=== PATIENT | female | born 1970 | race American Indian/Alaskan Native ===

== ENCOUNTER 2017-04-05 18:25 | Inpatient (IN) | payer BC, OTHER ==
[2017-04-05 18:25] VITALS: BMI 33.4
--- NOTE | 2017-04-05 19:01 | ED PDOC ---
Arrival/HPI - General Historian: Patient - General Chief Complaint: High Blood Pressure Time Seen by Provider: 04/05/17 18:50 - History of Present Illness Narrative History of Present Illness (Text): 04/05/17 18:50 46 y/o female, pmh including htn (been on the diovan)/TIA, penicillin allergy, c /o elevated blood pressure today. Pt. stated that she woke up with the lt. eye blurry vision on and off 10am this morning, stated that this feels like her previous TIA, has not been feeling well and been checking the blood pressure all day long with the highest BP checked is 170/110. Pt. stated that she has no eye pain, no chest pain or shortness of breath, no palpitation, no numbness or tingling, no dizziness, no neck pain, no falling curtains, no other medical or psychological complaints. (El Manning) Past Medical History - Provider Review Nursing Documentation Reviewed: Yes - Infectious Disease Hx of Infectious Diseases: None - Tetanus Immunization Tetanus Immunization: Up to Date, Unknown - Cardiac Hx Cardiac Arrhythmia: No Hx Congestive Heart Failure: No Hx Hypertension: Yes Hx Internal Defibrillator: No Hx Mitral Valve Prolapse: No Hx Pacemaker: No Hx Peripheral Edema: No - Pulmonary Hx Asthma: No Hx Bronchitis: No Hx Chronic Obstructive Pulmonary Disease (COPD): No Hx Emphysema: No - Neurological Hx Transient Ischemic Attacks (TIA): Yes - HEENT Hx HEENT Disorder: No Hx Blind: No Hx Cataracts: No Hx Deafness: No Hx Difficulty Chewing: No Hx Epistaxis: No Hx Glaucoma: No Hx Macular Degeneration: No - Renal Hx Renal Failure: No - Endocrine/Metabolic Hx Hyperthyroidism: No Hx Hypothyroidism: No - Hematological/Oncological Hx Anemia: No Hx Cancer: No Hx Hepatitis A: No Hx Hepatitis B: No Hx Hepatitis C: No - Integumentary Hx Dermatological Disorder: No Hx Basal Cell Carcinoma: No Hx Eczema: No Hx Melanoma: No Hx Psoriasis: No Hx Squamous Cell Carcinoma: No - Musculoskeletal/Rheumatological Hx Arthritis: No - Gastrointestinal Hx Crohn's Disease: No Hx Diverticulitis: No Hx Gastroesophageal Reflux: No Hx Gastrointestinal Ulcer: No Hx Liver Failure: No - Genitourinary/Gynecological Hx Genitourinary Disorders: Yes Hx Hematuria: No Hx Incontinence: Yes (Stress incontinence) Hx Prostate Problems: No Hx Sexually Transmitted Diseases: No Hx Urinary Tract Infection: Yes (Frequent UTI) - Psychiatric Hx Psychophysiologic Disorder: Yes Hx Anxiety: Yes Hx Substance Use: No - Past Surgical History Past Surgical History: No Previous - Surgical History Hx Section: Yes - Anesthesia Hx Anesthesia: Yes Hx Anesthesia Reactions: No Hx Malignant Hyperthermia: No - Suicidal Assessment Feels Threatened In Home Enviroment: No Family/Social History - Physician Review Nursing Documentation Reviewed: Yes Family/Social History: Unknown Family HX Smoking Status: Never Smoked Hx Alcohol Use: No Hx Substance Use: No Hx Substance Use Treatment: No Allergies/Home Meds Allergies/Adverse Reactions: Allergies Penicillins Allergy (Verified 04/05/17 18:38) RASH Review of Systems - Review of Systems Constitutional: absent: Fatigue, Weight Change Eyes: Other (lt. eye pressure. ). absent: Vision Changes, Photophobia ENT: absent: Hearing Changes, Sore Throat, Rhinorrhea Respiratory: absent: SOB, Cough Cardiovascular: absent: Chest Pain Gastrointestinal: absent: Abdominal Pain, Diarrhea, Nausea, Vomiting Musculoskeletal: absent: Arthralgias, Myalgias Neurological: absent: Headache, Dizziness, Focal Weakness, Speech Changes, Facial Droop Physical Exam Vital Signs Reviewed: Yes Temperature: Afebrile Blood Pressure: Normal Pulse: Tachycardic Respiratory Rate: Normal Appearance: Positive for: Well-Appearing, Non-Toxic, Comfortable Pain Distress: None Mental Status: Positive for: Alert and Oriented X 3 - Systems Exam Head: Present: Atraumatic, Normocephalic Pupils: Present: PERRL Extroacular Muscles: Present: EOMI Conjunctiva: Present: Normal, Other (Eyes: lt. eye vision with correction 20/20 vs. rt. eye vision with correction 20/20, bilateral vision 20/20, FREOM without limitation, +lt. eye conjunctivitis with no hyphema or subconjunctival hemorrages, left eye intraocular pressure is 18.) Ears: Present: NORMAL TM, Normal Canal. No: Erythema Mouth: Present: Moist Mucous Membranes Pharnyx: No: ERYTHEMA, EXUDATE, TONSILS ENLARGED, Uvular Deviation Nose (External): Present: Atraumatic. No: Abrasion, Contusion Nose (Internal): Present: Normal Inspection, No Active Bleeding. No: Rhinorrhea , Septal Hematoma, Epistaxis Neck: Present: Normal Range of Motion, Trachea Midline. No: Lymphadenopathy Respiratory/Chest: Present: Clear to Auscultation, Good Air Exchange. No: Respiratory Distress, Accessory Muscle Use Cardiovascular: Present: Regular Rate and Rhythm, Normal S1, S2. No: Murmurs Abdomen: Present: Normal Bowel Sounds. No: Tenderness, Distention, Peritoneal Signs Back: Present: Normal Inspection Upper Extremity: Present: Normal Inspection. No: Cyanosis, Edema Lower Extremity: Present: Normal Inspection. No: Edema Neurological: Present: GCS=15, CN II-XII Intact, Speech Normal Skin: Present: Warm, Dry, Normal Color. No: Rashes Psychiatric: Present: Alert, Oriented x 3, Normal Insight, Normal Concentration Vital Signs Temp Pulse Resp BP Pulse Ox 04/05/17 23:40 98.3 F 94 H 18 145/66 99 04/05/17 22:25 86 18 146/97 H 94 L 04/05/17 20:25 79 18 163/98 H 93 L 04/05/17 18:40 98.2 F 104 H 17 131/86 98 Medical Decision Making - Lab Interpretations I have reviewed the lab results: Yes Interpretation: No clinic. lab abnormalty - RAD Interpretation Telecommunications Repairer: Radiologist - EKG Interpretation Interpreted by ED Physician: Yes Type: 12 lead EKG ED Course and Treatment: 04/05/17 19:43 I was available for consultation during PA evaluation. The chart was reviewed by me, and I agree with disposition. The documented history was done by the physician resolution agent. The documented physical exam was done by the physician resolution agent. The documented procedures were done by the physician resolution agent. (Junior Urbina) 04/05/17 19:10 -labs -CT head/orbit -Lt. eye introcular pressure is 18 which is within normal limit. -observe and reassess 04/05/17 22:24 -CT head show no acute hemorrage but there is asymmetric changes on the rt. internal capsule which can not rule out acute stroke, no focal deficits. -CT orbital show no acute findings -Chest xray show no active disease -EKG show: NSR @ 79 BPM, no ST elevation or depression, no T wave inversion. -Erythromycin opthalmic ordered for the lt. conjunctivitis. -Pt. passed the swallow screen, vision return, aspirin 325mg po ordered, aspiration and fall risk ordered. -Pt. will be admit to observe to night for the MRI of the head tomorrow to rule out acute stroke, pt. is not a TPA candidate. 04/05/17 22:47 -I spoke to the oncall medicine DR. Feliciano request to give the case to hospitalist. -I discussed the case with DR. José and the medical billing service, both agreed to admit the patient for MRI tomorrow morning. 04/05/17 22:55 -Dr. Urbina is off the shift, will put in the order for him. (El Manning) - Lab Interpretations Lab Results: 04/06/17 07:12 04/06/17 07:12 Lab Results 04/06/17 07:12: TSH 3rd Generation 3.68 04/06/17 07:12: Vitamin B12 485 04/06/17 07:12: Sodium 141, Potassium 4.0, Chloride 108 H, Carbon Dioxide 23, Anion Gap 14, BUN 13, Creatinine 0.8, Est GFR ( Amer) > 60, Est GFR (Non- Af Amer) > 60, Random Glucose 87, Calcium 8.9, Total Bilirubin 0.6, AST 19, ALT 20, Alkaline Phosphatase 64, Total Protein 6.5, Albumin 3.5, Globulin 3.0, Albumin/Globulin Ratio 1.2, Triglycerides 71, Cholesterol 168, LDL Cholesterol Direct 107, HDL Cholesterol 46 04/06/17 07:12: Lupus Anticoagulant see note, LA PTT Screen 37, dRVVT Mixing Study 33, dRVVT Mix Interpret Not indicated 04/06/17 07:12: PT 10.7, INR 0.99, APTT 28.6 04/06/17 07:12: WBC 7.1 D, RBC 3.95, Hgb 12.4, Hct 36.8, MCV 93.2, MCH 31.4, MCHC 33.7, RDW 13.2, Plt Count 271, MPV 9.0, Gran % 57.2, Lymph % (Auto) 32.7, [place] % (Auto) 9.1 H, Eos % (Auto) 0.7 L, Baso % (Auto) 0.3, Gran # 4.05, Lymph # 2.3, [place] # 0.6, Eos # 0.1, Baso # 0.02, ESR 25 H 04/05/17 20:15: Sodium 140, Potassium 3.6, Chloride 108 H, Carbon Dioxide 20 L, Anion Gap 16, BUN 14, Creatinine 0.8, Est GFR ( Amer) > 60, Est GFR (Non- Af Amer) > 60, Random Glucose 73, Calcium 9.1, Total Bilirubin 0.7, AST 22, ALT 17, Alkaline Phosphatase 69, Total Protein 7.3, Albumin 3.8, Globulin 3.4, Albumin/Globulin Ratio 1.1 04/05/17 20:15: WBC 9.0, RBC 3.95, Hgb 12.7, Hct 36.9, MCV 93.4, MCH 32.2, MCHC 34.4, RDW 13.2, Plt Count 239, MPV 8.7, Gran % 62.4, Lymph % (Auto) 29.5, [place] % (Auto) 7.0 H, Eos % (Auto) 1.0 L, Baso % (Auto) 0.1, Gran # 5.61, Lymph # 2.7 , [place] # 0.6, Eos # 0.1, Baso # 0.01 - RAD Interpretation Radiology Orders: 04/05/17 19:01 HEAD W/O CONTRAST [CT] Stat 04/05/17 19:05 ORBITS/ FACIALS W/O CONTRAST [CT] Stat 04/05/17 22:07 CHEST PORTABLE [RAD] Stat 04/06/17 01:18 CAROTID & VERTEBRAL DUPLEX [US] Routine 04/06/17 12:23 MRA HEAD WITHOUT CONTRAST [MRI] Urgent 04/06/17 12:32 MRA NECK WITHOUT CONTRAST [MRI] Urgent 04/05/17 19:01 HEAD W/O CONTRAST [CT] Stat 04/05/17 19:05 ORBITS/ FACIALS W/O CONTRAST [CT] Stat 04/05/17 22:07 CHEST PORTABLE [RAD] Stat CT Head: IMPRESSION: Subtle asymmetric right internal capsule low-density could represent artifact although the possibility of an age-indeterminate infarct or nonspecific white matter abnormality is raised. Thank you for allowing us to participate in the care of your patient. Dictated and Authenticated by: Desmond Coleman MD 04/05/2017 9:49 PM Eastern Time ([place] & [place]) CT Orbital/facial: IMPRESSION: No acute findings. Thank you for allowing us to participate in the care of your patient. Dictated and Authenticated by: Desmond Coleman MD 04/05/2017 9:53 PM Eastern Time ( & [place]) Chest x-ray: no active disease (El Manning) - EKG Interpretation EKG Interpretation (Text): 04/05/17 22:30 : NSR @ 79 BPM, no ST elevation or depression, no T wave inversion. (El Manning ) - Medication Orders Current Medication Orders: Discontinued Medications Amlodipine Besylate (Norvasc) 5 mg PO STAT STA Stop: 04/06/17 05:31 Last Admin: 04/06/17 06:12 Dose: 5 mg Amlodipine Besylate (Norvasc) 10 mg PO DAILY [facility] Last Admin: 04/07/17 09:38 Dose: 10 mg Aspirin (Aspirin) 325 mg PO STAT STA Stop: 04/05/17 22:09 Last Admin: 04/05/17 22:46 Dose: 325 mg Erythromycin (Erythromycin) 1 applic OU ONCE ONE Stop: 04/05/17 22:27 Last Admin: 04/05/17 23:53 Dose: 1 oin Famotidine (Pepcid) 20 mg IVP DAILY [facility] Last Admin: 04/07/17 09:38 Dose: 20 mg Hydrochlorothiazide (Hydrodiuril) 25 mg PO DAILY [facility] Last Admin: 04/07/17 09:38 Dose: 25 mg Labetalol HCl (Trandate) 20 mg IV ONCE ONE Stop: 04/06/17 01:55 Last Admin: 04/06/17 02:21 Dose: 20 mg Pneumococcal Polyvalent Vaccine (Pneumovax 23 Vaccine) 0.5 ml IM .ONCE ONE Stop: 04/08/17 10:01 NIHSS Scale (Ideal) Time Performed: 19:00 - How Severe is the [place]oke Baseline Level of Consciousness: 0=Alert LOC to Questions: 0=Both comments correct LOC to commands: 0=Obeys both correctly Best Gaze: 0=Normal Visual: 1=Partial hemianopia Facial: 0=Normal Motor Arm - Left: 0=No drift Motor Arm - Right: 0=No drift Motor Leg - Left: 0=No drift Motor Leg - Right: 0=No drift Limb Ataxia: 0=Absent Sensory: 0=Normal Best Language: 0=No aphasia Dysarthia: 0=Normal articulation Extinction & Inattention (Neglect): 0=Normal, no object Score: 1 Risk Level: Minor Stroke Risk - PA / SASH FINISHER / Resident Statement MD/DO has reviewed & agrees with the documentation as recorded. Disposition/Present on Arrival - Present on Arrival Any Indicators Present on Arrival: No History of DVT/PE: No History of Uncontrolled Diabetes: No Urinary Catheter: No History of Decub. Ulcer: No History Surgical Site Infection Following: None - Disposition Have Diagnosis and Disposition been Completed?: Yes Disposition Time: 22:31 Patient Plan: Observation - Disposition Diagnosis: Transient vision disturbance of left eye Disposition: HOSPITALIZED Condition: STABLE
[2017-04-05 20:35] LABS: BASO # 0.01 K/mm3 (0.0-2.0); BASO % 0.1 % (0.0-3.0); EOS # 0.1 (0.0-0.7); GRAN # 5.61 (1.4-6.5); GRAN % 62.4 % (50.0-68.0); HEMOGLOBIN 12.7 gm/dL (12.0-16.0); LYMPH # 2.7 (1.2-3.4); LYMPH % 29.5 % (22.0-35.0); MEAN CELL VOLUME 93.4 fL (80.0-105.0); MEAN CORPUSCULAR HEMOGLOBIN 32.2 pg (25.0-35.0); MEAN CORPUSCULAR HGB CONC 34.4 g/dl (31.0-37.0); MEAN PLATELET VOLUME 8.7 fl (7.0-11.0); MONO # 0.6 (0.1-0.6); PLATELET COUNT 239 10^3/uL (120.0-450.0); RBC 3.95 10^6/uL (3.5-6.1); RED CELL DISTRIBUTION WIDTH 13.2 % (11.5-14.5)
[2017-04-05 20:44] LABS: ALB/GLOB RATIO 1.1 (1.1-1.8); ALBUMIN 3.8 g/dL (3.0-4.8); ALT/SGPT 17 U/L (7-56); AST/SGOT 22 U/L (15-39); BLOOD UREA NITROGEN 14 mg/dL (7-21); CALCIUM 9.1 mg/dL (8.4-10.5); GFR AFRICAN-AMERICAN > 60; GFR NON-AFRICAN AMERICAN > 60
[2017-04-05] MEDS ORDERED: Erythromycin 0.5% Ophth Oint 1 APPLIC/3.5 G OU ONE (22:26)
--- NOTE | 2017-04-06 01:28 | CP.PCM.HP ---
Addendum entered and electronically signed by Jack York DO 04/06/17 05:29: Case was discussed at length with Dr. Gallagher. Correction: patient given labetalol 20 once in the ER for BP control, will start on amlodipine 10mg po QD. CT head and orbit pending. Neuro consulted. Medication compliance was discussed at length with patient. Jack York D.O. PGY-2 Original Note: <RANDI GALLAGHER - Last Filed: 04/06/17 05:20> History of Present Illness - History of Present Illness History of Present Illness: 46 year old female pmh TIA 2010 and HTN presented to [facility] ED on 04/05/17 with complaints of a left red eye. Patient states that 6 years ago she suffered a TIA. At that time her symptoms involved a red spot on her eye and a few minutes of dizziness. At the time her blood pressure was elevated. Her noticing a red eye today prompted her to check her blood pressure throughout the day, with the highest BP peaking at 180s/130s as per patient. Aside from the red eye, patient states for a few seconds her left eye vibrated uncontrollably. With all these symptoms she decided to come to the ED for further evaluation. Patient states that she was initially placed on Diavan 160 mg after her first TIA episode. As per patient her physician agreed to lower her dosage or switch medication if she lost weight. Patient states she lost 30 pounds and decided to stop taking her medication after. Patient despite having high BP readings within the past six years, has not taken any medications. She also admits to gaining back over twenty pounds for which she has been taking the herbal supplement garcinia cambogia for weight loss for the past month. Patient denies headache, shortness of breath, chest pain, numbness or tingling, n/v/d, dizziness. PMH: TIA, HTN PSH: 2 c-sections FH: Paternal grandmother-stroke, Sister: carotid artery pathology SH: denies tobacco, alcohol, illicit drug use Allergies: Penicillins Present on Admission - Present on Admission Any Indicators Present on Admission: No Review of Systems - Constitutional Constitutional: As Per HPI, Malaise. absent: Headache, Weakness - EENT Eyes: Other Visual Disturbances (vibratory sensation lasting seconds in left eye ). absent: Blind Spots, Blurred Vision, Pain - Cardiovascular Cardiovascular: As Per HPI. absent: Chest Pain, Dyspnea, Edema - Respiratory Respiratory: As Per HPI. absent: Dyspnea - Gastrointestinal Gastrointestinal: absent: Abdominal Pain, Diarrhea, Nausea, Vomiting - Musculoskeletal Musculoskeletal: absent: Numbness, Tingling - Neurological Neurological: Other Visual Disturbances. absent: Dizziness, Numbness, Tingling Past Patient History - Infectious Disease Hx of Infectious Diseases: None - Tetanus Immunizations Tetanus Immunization: Up to Date, Unknown - Past Social History Smoking Status: Never Smoked - CARDIAC Hx Cardia Arrhythmia: No Hx Congestive Heart Failure: No Hx Hypertension: Yes Hx Internal Defibrillator: No Hx Mitral Valve Prolapse: No Hx Pacemaker: No Hx Peripheral Edema: No - PULMONARY Hx Asthma: No Hx Bronchitis: No Hx Chronic Obstructive Pulmonary Disease (COPD): No Hx Emphysema: No - NEUROLOGICAL Hx Transient Ischemic Attacks (TIA): Yes - HEENT Hx HEENT Problems: No Hx Blind: No Hx Cataracts: No Hx Deafness: No Hx Difficulty Chewing: No Hx Epistaxis: No Hx Glaucoma: No Hx Macular Degeneration: No - RENAL Hx Renal Failure: No - ENDOCRINE/METABOLIC Hx Hyperthyroidism: No Hx Hypothyroidism: No - HEMATOLOGICAL/ONCOLOGICAL Hx Anemia: No Hx Cancer: No Hx Hepatitis A: No Hx Hepatitis B: No Hx Hepatitis C: No - INTEGUMENTARY Hx Dermatological Problems: No Hx Basil Cell: No Hx Eczema: No Hx Melanoma: No Hx Psoriasis: No Hx Squamous Cell: No - MUSCULOSKELETAL/RHEUMATOLOGICAL Hx Arthritis: No - GASTROINTESTINAL Hx Crohn's Disease: No Hx Diverticulitis: No Hx Gastroesophageal Reflux: No Hx Liver Failure: No - GENITOURINARY/GYNECOLOGICAL Hx Genitourinary Disorders: Yes Hx Hematuria: No Hx Incontinence: Yes (Stress incontinence) Hx Sexually Transmitted Disorders: No Hx Urinary Tract Infection: Yes (Frequent UTI) - PSYCHIATRIC Hx Psychophysiologic Disorder: Yes Hx Anxiety: Yes Hx Substance Use: No - SURGICAL HISTORY Hx Section: Yes - ANESTHESIA Hx Anesthesia: Yes Hx Anesthesia Reactions: No Hx Malignant Hyperthermia: No Meds Allergies/Adverse Reactions: Allergies Allergy/AdvReac Type Severity Reaction Status Date / Time Penicillins Allergy RASH Verified 04/05/17 18:38 Physical Exam - Constitutional Appears: Non-toxic, No Acute Distress - Head Exam Head Exam: ATRAUMATIC, NORMAL INSPECTION, NORMOCEPHALIC - Eye Exam Eye Exam: Conjunctival injection, EOMI, PERRL. absent: Nystagmus, Periorbital swelling Pupil Exam: NORMAL ACCOMODATION, PERRL - ENT Exam ENT Exam: Mucous Membranes Moist, Normal Exam - Neck Exam Neck exam: Positive for: Normal Inspection. Negative for: Tenderness - Respiratory Exam Respiratory Exam: Clear to Auscultation Bilateral, NORMAL BREATHING PATTERN. absent: Rhonchi, Wheezes - Cardiovascular Exam Cardiovascular Exam: REGULAR RHYTHM, RRR, +S1, +S2 - GI/Abdominal Exam GI & Abdominal Exam: Normal Bowel Sounds. absent: Distended, Firm, Guarding - Neurological Exam Neurological exam: Alert, CN II-XII Intact, Oriented x3 - Skin Skin Exam: Intact, Normal Color, Warm Results - Vital Signs Recent Vital Signs: Last Vital Signs Temp 98.3 F 04/05/17 23:40 Pulse 94 H 04/05/17 23:40 Resp 18 04/05/17 23:40 BP 145/66 04/05/17 23:40 Pulse Ox 99 04/05/17 23:40 - Labs Result Diagrams: 04/05/17 20:15 04/05/17 20:15 Assessment & Plan - Assessment and Plan (Free Text) Assessment: 46 year old black female PMH TIA and HTN presenting today with hypertensive urgency and complaints of left red eye. Plan: 1. Hypertensive Urgency - Labetalol 20 mg IV q6 - Medication compliance stressed - 2 g sodium diet and weight loss stressed 2. R/O TIA - CT Head w/o contrast ordered; results pending - CT orbit w/o contrast ordered; results pending - Neuro Consult; will follow up on recommendations - Neurochecks q 1hour - Carotid and vertebral duplex ultrasound; results pending <Lester José - Last Filed: 04/06/17 20:33> Results - Vital Signs Recent Vital Signs: Last Vital Signs Temp 98.2 F 04/06/17 16:45 Pulse 76 04/06/17 16:45 Resp 20 04/06/17 16:45 BP 144/100 H 04/06/17 16:45 Pulse Ox 100 04/06/17 01:31 - Labs Result Diagrams: 04/06/17 07:12 04/06/17 07:12 Labs: Laboratory Results - last 24 hr 04/06/17 04/06/17 04/06/17 07:12 07:12 07:12 WBC 7.1 D RBC 3.95 Hgb 12.4 Hct 36.8 MCV 93.2 MCH 31.4 MCHC 33.7 RDW 13.2 Plt Count 271 MPV 9.0 Gran % 57.2 Lymph % (Auto) 32.7 [place] % (Auto) 9.1 H Eos % (Auto) 0.7 L Baso % (Auto) 0.3 Gran # 4.05 Lymph # 2.3 [place] # 0.6 Eos # 0.1 Baso # 0.02 ESR 25 H PT 10.7 INR 0.99 APTT 28.6 Sodium 141 Potassium 4.0 Chloride 108 H Carbon Dioxide 23 Anion Gap 14 BUN 13 Creatinine 0.8 Est GFR ( Amer) > 60 Est GFR (Non-Af Amer) > 60 Random Glucose 87 Calcium 8.9 Total Bilirubin 0.6 AST 19 ALT 20 Alkaline Phosphatase 64 Total Protein 6.5 Albumin 3.5 Globulin 3.0 Albumin/Globulin Ratio 1.2 Triglycerides 71 Cholesterol 168 LDL Cholesterol Direct 107 HDL Cholesterol 46 TSH 3rd Generation 04/06/17 07:12 WBC RBC Hgb Hct MCV MCH MCHC RDW Plt Count MPV Gran % Lymph % (Auto) [place] % (Auto) Eos % (Auto) Baso % (Auto) Gran # Lymph # [place] # Eos # Baso # ESR PT INR APTT Sodium Potassium Chloride Carbon Dioxide Anion Gap BUN Creatinine Est GFR ( Amer) Est GFR (Non-Af Amer) Random Glucose Calcium Total Bilirubin AST ALT Alkaline Phosphatase Total Protein Albumin Globulin Albumin/Globulin Ratio Triglycerides Cholesterol LDL Cholesterol Direct HDL Cholesterol TSH 3rd Generation 3.68 Attending/Attestation - Attestation I have personally seen and examined this patient.: Yes I have fully participated in the care of the patient.: Yes I have reviewed all pertinent clinical information: Yes Notes (Text): 04/06/17 20:32 Patient was seen when she was in the ER. Agree with history , physical examination,assessment and plan.
[2017-04-06] MEDS ORDERED: Labetalol 5 mg/ml Inj 20ML IV ONE (01:54)
[2017-04-06 07:31] LABS: BASO # 0.02 K/mm3 (0.0-2.0); BASO % 0.3 % (0.0-3.0); EOS # 0.1 (0.0-0.7); EOS % 0.7 % (1.5-5.0); GRAN # 4.05 (1.4-6.5); GRAN % 57.2 % (50.0-68.0); HEMOGLOBIN 12.4 gm/dL (12.0-16.0); LYMPH # 2.3 (1.2-3.4); LYMPH % 32.7 % (22.0-35.0); MEAN CELL VOLUME 93.2 fL (80.0-105.0); MEAN CORPUSCULAR HEMOGLOBIN 31.4 pg (25.0-35.0); MEAN CORPUSCULAR HGB CONC 33.7 g/dl (31.0-37.0); MONO # 0.6 (0.1-0.6); MONO % 9.1 % (1.0-6.0); PLATELET COUNT 271 10^3/uL (120.0-450.0); RBC 3.95 10^6/uL (3.5-6.1); RED CELL DISTRIBUTION WIDTH 13.2 % (11.5-14.5); WHITE BLOOD COUNT 7.1 10^3/ul (4.5-11.0)
[2017-04-06 07:32] LABS: ALB/GLOB RATIO 1.2 (1.1-1.8); ALBUMIN 3.5 g/dL (3.0-4.8); ALT/SGPT 20 U/L (7-56); AST/SGOT 19 U/L (15-39); BLOOD UREA NITROGEN 13 mg/dL (7-21); CALCIUM 8.9 mg/dL (8.4-10.5); GFR AFRICAN-AMERICAN > 60; GFR NON-AFRICAN AMERICAN > 60; HDL CHOLESTEROL 46 mg/dL (29-60)
[2017-04-06 07:33] LABS: INR 0.99 (0.93-1.08); PARTIAL THROMBOPLASTIN TIME 28.6 Seconds (23.7-30.8); PROTHROMBIN TIME 10.7 Seconds (9.9-11.8)
[2017-04-06 07:43] LABS: LDL CHOLESTEROL 107 mg/dL (0-129)
--- NOTE | 2017-04-06 08:44 | CT ---
PROCEDURE: CT HEAD WITHOUT CONTRAST. HISTORY: pressure on the head COMPARISON: None available. TECHNIQUE: Axial computed tomography images were obtained through the head/brain without intravenous contrast. Radiation dose: Total exam DLP = 822.62 mGy-cm. This CT exam was performed using one or more of the following dose reduction techniques: Automated exposure control, adjustment of the mA and/or kV according to patient size, and/or use of iterative reconstruction technique. FINDINGS: HEMORRHAGE: No intracranial hemorrhage. BRAIN: No mass effect or edema. Subtle low attenuation in the genu of the right internal capsule common nonspecific. This could represent focal ischemic change of indeterminate age and consideration may be given to follow-up CT or further evaluation with MRI if clinically warranted. No evidence of acute infarct elsewhere. VENTRICLES: Unremarkable. No hydrocephalus. CALVARIUM: Unremarkable. PARANASAL SINUSES: Unremarkable as visualized. No significant inflammatory changes. MASTOID AIR CELLS: Unremarkable as visualized. No inflammatory changes. OTHER FINDINGS: None. IMPRESSION: Subtle low attenuation at the genu of the right internal capsule. This may reflect focal ischemic change of indeterminate age but is nonspecific. Consider follow-up with CT or further evaluation with magnetic resonance imaging if clinically warranted. Preliminary interpretation of this examination was reported by [facility] at 9:49 p.m. on 04/05/2017. There is concurrence of this report with the preliminary interpretation.
--- NOTE | 2017-04-06 08:57 | CT ---
PROCEDURE: CT ORBITS WITHOUT CONTRAST. HISTORY: lt. eye pressure COMPARISON: None available. TECHNIQUE: Axial CT images of the orbits were obtained. Coronal and sagittal reformats were generated. Radiation dose: Total exam DLP = 517.83 mGy-cm. This CT exam was performed using one or more of the following dose reduction techniques: Automated exposure control, adjustment of the mA and/or kV according to patient size, and/or use of iterative reconstruction technique. FINDINGS: RIGHT ORBIT: RIGHT BONY ORBIT: Normal. RIGHT INTRAORBITAL STRUCTURES: Globe: Normal. Extraocular muscles: Normal. Post septal space: Normal. Optic Nerve: Normal. Lacrimal Apparatus: Normal. RIGHT PRESEPTAL SOFT TISSUES: Normal. LEFT ORBIT: LEFT BONY ORBIT: Normal. LEFT INTRAORBITAL STRUCTURES: Globe: Normal. Extraocular muscles: Normal. Post septal space: Normal Optic Nerve: Normal. . Lacrimal Apparatus: Normal. LEFT PRESEPTAL SOFT TISSUES: Normal. OTHER: None. IMPRESSION: Unremarkable non contrast enhanced CT of the orbits. Preliminary interpretation of this examination was reported by [facility] at 9:53 p.m. on 04/05/2017. There is concurrence of this report with the preliminary interpretation.
--- NOTE | 2017-04-06 10:57 | CP.PCM.CON ---
History of Present Illness - History of Present Illness History of Present Illness: Mrs. Faust is a 46-year-old woman with a past medical history of uncontrolled hypertension who presented to the ED with complaints of eye pressure, pulsation and some blurry vision that resolved completely. She states that it only lasted for a few minutes and says that it's better when she wears her glasses. She denied headache, double vision, nausea, vomiting, sensory changes, weakness or any other associated symptoms. Review of Systems - Review of Systems All systems: reviewed and no additional remarkable complaints except Past Patient History - Infectious Disease Hx of Infectious Diseases: None - Tetanus Immunizations Tetanus Immunization: Up to Date, Unknown - Past Social History Smoking Status: Never Smoked - CARDIAC Hx Cardia Arrhythmia: No Hx Congestive Heart Failure: No Hx Hypertension: Yes Hx Internal Defibrillator: No Hx Mitral Valve Prolapse: No Hx Pacemaker: No Hx Peripheral Edema: No - PULMONARY Hx Asthma: No Hx Bronchitis: No Hx Chronic Obstructive Pulmonary Disease (COPD): No Hx Emphysema: No - NEUROLOGICAL Hx Transient Ischemic Attacks (TIA): Yes - HEENT Hx HEENT Problems: No Hx Blind: No Hx Cataracts: No Hx Deafness: No Hx Difficulty Chewing: No Hx Epistaxis: No Hx Glaucoma: No Hx Macular Degeneration: No - RENAL Hx Renal Failure: No - ENDOCRINE/METABOLIC Hx Hyperthyroidism: No Hx Hypothyroidism: No - HEMATOLOGICAL/ONCOLOGICAL Hx Anemia: No Hx Cancer: No Hx Hepatitis A: No Hx Hepatitis B: No Hx Hepatitis C: No - INTEGUMENTARY Hx Dermatological Problems: No Hx Basil Cell: No Hx Eczema: No Hx Melanoma: No Hx Psoriasis: No Hx Squamous Cell: No - MUSCULOSKELETAL/RHEUMATOLOGICAL Hx Arthritis: No - GASTROINTESTINAL Hx Crohn's Disease: No Hx Diverticulitis: No Hx Gastroesophageal Reflux: No Hx Liver Failure: No - GENITOURINARY/GYNECOLOGICAL Hx Genitourinary Disorders: Yes Hx Hematuria: No Hx Incontinence: Yes (Stress incontinence) Hx Sexually Transmitted Disorders: No Hx Urinary Tract Infection: Yes (Frequent UTI) - PSYCHIATRIC Hx Psychophysiologic Disorder: Yes Hx Anxiety: Yes Hx Substance Use: No - SURGICAL HISTORY Hx Section: Yes - ANESTHESIA Hx Anesthesia: Yes Hx Anesthesia Reactions: No Hx Malignant Hyperthermia: No Meds Allergies/Adverse Reactions: Allergies Allergy/AdvReac Type Severity Reaction Status Date / Time Penicillins Allergy RASH Verified 04/05/17 18:38 - Medications Medications: Current Medications Amlodipine Besylate (Norvasc) 10 mg PO DAILY [facility] Last Admin: 04/06/17 10:25 Dose: 10 mg Famotidine (Pepcid) 20 mg IVP DAILY [facility] Last Admin: 04/06/17 10:25 Dose: 20 mg Pneumococcal Polyvalent Vaccine (Pneumovax 23 Vaccine) 0.5 ml IM .ONCE ONE Stop: 04/08/17 10:01 Physical Exam - Constitutional Appears: Well - Head Exam Head Exam: ATRAUMATIC, NORMAL INSPECTION, NORMOCEPHALIC - Eye Exam Eye Exam: EOMI, Normal appearance, PERRL - ENT Exam ENT Exam: Mucous Membranes Moist, Normal Exam - Respiratory Exam Respiratory Exam: Clear to Auscultation Bilateral, NORMAL BREATHING PATTERN - GI/Abdominal Exam GI & Abdominal Exam: Normal Bowel Sounds, Soft. absent: Tenderness - Extremities Exam Extremities exam: Positive for: normal inspection - Back Exam Back exam: NORMAL INSPECTION - Neurological Exam Neurological exam: Alert, CN II-XII Intact, Normal Gait, Oriented x3, Reflexes Normal - Expanded Neurological Exam Expanded Patient oriented to: person, place, time Cranial nerves: EOM's Intact: Normal, Facial Sensation: Normal, Nystagmus: Normal Ataxia: No Cerebellar Function: Finger to Nose: Normal, Heel to Hay: Normal Upper motor neuron: Babinski Sign: Normal Sensory exam: Lower Extremity 2 Point Discrimination: Normal, Lower Extremity Light Touch: Normal, Lower Extremity Pin Prick: Normal, Lower Extremity Temperature: Normal, Upper Extremity 2 Point Discrimination: Normal, Upper Extremity Light Touch: Normal, Upper Extremity Pin Prick: Normal, Upper Extremity Temperature: Normal Neuro motor strength exam: Left Upper Extremity: 5, Right Upper Extremity: 5, Left Lower Extremity: 5, Right Lower Extremity: 5 DTR: Achilles Tendon Left: 2+, Achilles Tendon Right: 2+, Bicep Left: 2+, Bicep Right: 2+, Brachioradialis Left: 2+, Brachioradialis Right: 2+, Patellar Left: 2 +, Patellar Right: 2+, Tricep Left: 2+, Tricep Right: 2+ - Psychiatric Exam Psychiatric exam: Normal Affect, Normal Mood - Skin Skin Exam: Dry, Intact, Normal Color, Warm Results - Vital Signs Recent Vital Signs: Last Vital Signs Temp 98.2 F 04/06/17 01:31 Pulse 81 04/06/17 06:12 Resp 18 04/06/17 01:31 BP 130/80 04/06/17 10:25 Pulse Ox 100 04/06/17 01:31 - Labs Result Diagrams: 04/06/17 07:12 04/06/17 07:12 Labs: Laboratory Results - last 24 hr 04/06/17 04/06/17 04/06/17 07:12 07:12 07:12 WBC 7.1 D RBC 3.95 Hgb 12.4 Hct 36.8 MCV 93.2 MCH 31.4 MCHC 33.7 RDW 13.2 Plt Count 271 MPV 9.0 Gran % 57.2 Lymph % (Auto) 32.7 [place] % (Auto) 9.1 H Eos % (Auto) 0.7 L Baso % (Auto) 0.3 Gran # 4.05 Lymph # 2.3 [place] # 0.6 Eos # 0.1 Baso # 0.02 PT 10.7 INR 0.99 APTT 28.6 Sodium 141 Potassium 4.0 Chloride 108 H Carbon Dioxide 23 Anion Gap 14 BUN 13 Creatinine 0.8 Est GFR ( Amer) > 60 Est GFR (Non-Af Amer) > 60 Random Glucose 87 Calcium 8.9 Total Bilirubin 0.6 AST 19 ALT 20 Alkaline Phosphatase 64 Total Protein 6.5 Albumin 3.5 Globulin 3.0 Albumin/Globulin Ratio 1.2 Triglycerides 71 Cholesterol 168 LDL Cholesterol Direct 107 HDL Cholesterol 46 - Imaging and Cardiology CT scan - head Status: Image reviewed by me, Report reviewed by me (Possible lacunar chronic infarct in genu of right IC. ) Assessment & Plan (1) Transient vision disturbance of left eye Assessment and Plan: This is likely due to hypertension, but may represent a transient ischemic attack. I recommend the followin. Telemetry. 2. MRI of the brain without contrast, MRA of the head/neck without contrast 3. Echocardiogram 4. Aspirin 81 mg daily 5. Control BP with meds per primary care team 6. PT/OT if needed 7. Check lipids, HbA1c, TSH, B12 folate Thank you. Status: Acute Priority: Medium
--- NOTE | 2017-04-06 11:56 | RAD ---
HISTORY: medical clearance COMPARISON: No prior. FINDINGS: LUNGS: No active pulmonary disease. PLEURA: No evidence of pleural effusion. Mild nonspecific elevation of right hemidiaphragm. CARDIOVASCULAR: Normal. OSSEOUS STRUCTURES: No significant abnormalities. VISUALIZED UPPER ABDOMEN: Normal. OTHER FINDINGS: None. IMPRESSION: No active disease.
--- NOTE | 2017-04-06 13:04 | US ---
PROCEDURE: Bilateral carotid artery duplex ultrasound HISTORY: Carotid stenosis TIA PHYSICIAN(S): Dung Howard MD. TECHNIQUE: Duplex sonography and color-flow Doppler were used to evaluate the carotid bifurcations and limited segments of the vertebral arteries bilaterally. FINDINGS: There is mild smooth hypoechoic plaque noted at the carotid bifurcations bilaterally. The peak systolic velocity in the proximal right internal carotid artery is 80 cm/sec. This corresponds to a 20 to 39% proximal right ICA stenosis. Normal systolic velocities are noted in the proximal right external carotid artery. There is antegrade flow in the right vertebral artery. The peak systolic velocity in the proximal left internal carotid artery is 77 cm/sec. This corresponds to a 20 to 39% proximal left ICA stenosis. Normal systolic velocities are noted in the proximal left external carotid artery. There is antegrade flow in the left vertebral artery. IMPRESSION: 1. Bilateral 20-39% proximal ICA stenoses. 2. Antegrade flow in both vertebral arteries.
[2017-04-06 16:46] VITALS: RESP 20
--- NOTE | 2017-04-06 18:14 | CARD ---
APPROVED REPORT EXAM: Two-dimensional and M-mode echocardiogram with Doppler and color Doppler. INDICATION 2D DIMENSIONS IVSd1.0 (0.7-1.1cm)LVDd4.6 (3.9-5.9cm) PWd1.0 (0.7-1.1cm)LVDs2.5 (2.5-4.0cm) FS (%) 45.0 %LVEF (%)76.4 (>50%) M-Mode DIMENSIONS Left Atrium (MM)3.50 (2.5-4.0cm)Aortic Root3.10 (2.2-3.7cm) Aortic Cusp Exc.2.00 (1.5-2.0cm) Aortic Valve AoV Peak Zrlzksao977.0cm/Vicente Peak GR.11mmHg Mitral Valve MV E Svbjpqsp29.5cm/sMV A Hwvihlyv32.8cm/sE/A ratio0.8 TDI Lateral E' Peak V12.10cm/sMedial E' Peak V8.77cm/sE/Lateral E'6.6 E/Medial E'9.1 Tricuspid Valve TR Peak Lighuqaj788iv/sRAP [id number] Peak Gr.27mmHg [id number] LEFT VENTRICLE The left ventricle is normal size. There is normal left ventricular wall thickness. The left ventricular function is normal. The left ventricular ejection fraction is within the normal range. There is normal LV segmental wall motion. Transmitral Doppler flow pattern is Grade I-abnormal relaxation pattern. RIGHT VENTRICLE The right ventricle is normal size. There is normal right ventricular wall thickness. The right ventricular systolic function is normal. ATRIA The left atrium size is normal. The right atrium size is normal. AORTIC VALVE The aortic valve is normal in structure. No aortic regurgitation is present. MITRAL VALVE The mitral valve is normal in structure. Mitral regurgitation is trace. TRICUSPID VALVE There is mild tricuspid regurgitation. There is mild pulmonary hypertension. GREAT VESSELS The aortic root is normal in size. The IVC is normal in size and collapses >50% with inspiration. PERICARDIAL EFFUSION There is no pericardial effusion. <Conclusion> The left ventricle is normal size. There is normal left ventricular wall thickness. The left ventricular function is normal. The left ventricular ejection fraction is within the normal range. There is normal LV segmental wall motion. Transmitral Doppler flow pattern is Grade I-abnormal relaxation pattern. There is mild tricuspid regurgitation. There is mild pulmonary hypertension.
--- NOTE | 2017-04-06 20:49 | CARD ---
APPROVED REPORT EKG Measurement Heart [id number] <Conclusion> Normal sinus rhythm Cannot rule out Inferior infarct, age undetermined Abnormal ECG
[2017-04-07 07:14] LABS: BASO # 0.01 K/mm3 (0.0-2.0); BASO % 0.1 % (0.0-3.0); EOS # 0.1 (0.0-0.7); EOS % 0.9 % (1.5-5.0); GRAN # 4.82 (1.4-6.5); GRAN % 63.3 % (50.0-68.0); HEMOGLOBIN 13.2 gm/dL (12.0-16.0); LYMPH # 2.1 (1.2-3.4); LYMPH % 27.9 % (22.0-35.0); MEAN CELL VOLUME 92.1 fL (80.0-105.0); MEAN CORPUSCULAR HEMOGLOBIN 31.4 pg (25.0-35.0); MEAN CORPUSCULAR HGB CONC 34.1 g/dl (31.0-37.0); MEAN PLATELET VOLUME 8.8 fl (7.0-11.0); MONO # 0.6 (0.1-0.6); MONO % 7.8 % (1.0-6.0); PLATELET COUNT 283 10^3/uL (120.0-450.0); RED CELL DISTRIBUTION WIDTH 13.4 % (11.5-14.5); WHITE BLOOD COUNT 7.6 10^3/ul (4.5-11.0)
[2017-04-07 07:39] VITALS: O2SAT 98
[2017-04-07 08:37] LABS: BLOOD UREA NITROGEN 14 mg/dL (7-21); CALCIUM 9.6 mg/dL (8.4-10.5); GFR AFRICAN-AMERICAN > 60; GFR NON-AFRICAN AMERICAN > 60; MAGNESIUM 1.9 mg/dL (1.7-2.2)
--- NOTE | 2017-04-07 09:09 | CP.PCM.DIS ---
Addendum entered and electronically signed by Eden Mccarthy DO 04/07/17 11: 57: MRI results were negative. Discussed results with patient. Original Note: <Eden Mccarthy - Last Filed: 04/07/17 10:14> Provider - Provider Date of Admission: 04/06/17 17:26 Attending physician: Mayank Cruz MD Consults: Dr. Ramos- Neurology. Time Spent in preparation of Discharge (in minutes): 35 Hospital Course - Lab Results Lab Results: Most Recent Lab Values WBC 7.6 10^3/ul (4.5-11.0) 04/07/17 07:00 RBC 4.20 10^6/uL (3.5-6.1) 04/07/17 07:00 Hgb 13.2 gm/dL (12.0-16.0) 04/07/17 07:00 Hct 38.7 % (36.0-48.0) 04/07/17 07:00 MCV 92.1 fL (80.0-105.0) 04/07/17 07:00 MCH 31.4 pg (25.0-35.0) 04/07/17 07:00 MCHC 34.1 g/dl (31.0-37.0) 04/07/17 07:00 RDW 13.4 % (11.5-14.5) 04/07/17 07:00 Plt Count 283 10^3/uL (120.0-450.0) 04/07/17 07:00 MPV 8.8 fl (7.0-11.0) 04/07/17 07:00 Gran % 63.3 % (50.0-68.0) 04/07/17 07:00 Lymph % (Auto) 27.9 % (22.0-35.0) 04/07/17 07:00 [place] % (Auto) 7.8 % (1.0-6.0) H 04/07/17 07:00 Eos % (Auto) 0.9 % (1.5-5.0) L 04/07/17 07:00 Baso % (Auto) 0.1 % (0.0-3.0) 04/07/17 07:00 Gran # 4.82 (1.4-6.5) 04/07/17 07:00 Lymph # 2.1 (1.2-3.4) 04/07/17 07:00 [place] # 0.6 (0.1-0.6) 04/07/17 07:00 Eos # 0.1 (0.0-0.7) 04/07/17 07:00 Baso # 0.01 K/mm3 (0.0-2.0) 04/07/17 07:00 ESR 25 mm/hr (0.0-20.0) H 04/06/17 07:12 PT 10.7 Seconds (9.9-11.8) 04/06/17 07:12 INR 0.99 (0.93-1.08) 04/06/17 07:12 APTT 28.6 Seconds (23.7-30.8) 04/06/17 07:12 Sodium 138 mmol/L (132-148) 04/07/17 07:00 Potassium 4.4 mmol/L (3.6-5.0) 04/07/17 07:00 Chloride 105 mmol/L (98-107) 04/07/17 07:00 Carbon Dioxide 21 mmol/L (21-33) 04/07/17 07:00 Anion Gap 16 (10-20) 04/07/17 07:00 BUN 14 mg/dL (7-21) 04/07/17 07:00 Creatinine 0.9 mg/dL (0.5-1.4) 04/07/17 07:00 Est GFR ( Amer) > 60 04/07/17 07:00 Est GFR (Non-Af Amer) > 60 04/07/17 07:00 Random Glucose 87 mg/dL (70-110) 04/07/17 07:00 Calcium 9.6 mg/dL (8.4-10.5) 04/07/17 07:00 Phosphorus 4.1 mg/dL (2.5-4.5) 04/07/17 07:00 Magnesium 1.9 mg/dL (1.7-2.2) 04/07/17 07:00 Total Bilirubin 0.6 mg/dL (0.2-1.3) 04/06/17 07:12 AST 19 U/L (15-39) 04/06/17 07:12 ALT 20 U/L (7-56) 04/06/17 07:12 Alkaline Phosphatase 64 U/L (38-133) 04/06/17 07:12 Total Protein 6.5 g/dL (5.8-8.3) 04/06/17 07:12 Albumin 3.5 g/dL (3.0-4.8) 04/06/17 07:12 Globulin 3.0 gm/dL 04/06/17 07:12 Albumin/Globulin Ratio 1.2 (1.1-1.8) 04/06/17 07:12 Triglycerides 71 mg/dL (35-160) 04/06/17 07:12 Cholesterol 168 mg/dL (130-200) 04/06/17 07:12 LDL Cholesterol Direct 107 mg/dL (0-129) 04/06/17 07:12 HDL Cholesterol 46 mg/dL (29-60) 04/06/17 07:12 Vitamin B12 485 pg/mL (239-931) 04/06/17 07:12 TSH 3rd Generation 3.68 mIU/mL (0.46-4.68) 04/06/17 07:12 - Hospital Course Hospital Course: This is a 46Y F with PMH TIA and HTN who was admitted for hypertensive urgency and L eye redness and dizziness. Code stroke was called. CT head showed chronic changes. Orbit CT was unremarkable. Carotid U/S showed 20-30% stenosis bilaterally of ICA and Echo showed EF of 76% and was essentially normal. MRA of head and neck preliminary read was unremarkable. Neurology also ordered MRI of brain, final read is pending. Will call patient with results today. Patient also has been feeling much better and her BP is controlled with Norvasc and HCTZ. She reports that her eye symptoms have resolved and has been able to ambulate on her own without any issues at all. She will be sent home with ASA 81mg, Lipitor 10mg, HCTZ 25mg daily and Norvas 10mg daily. She will be referred to Dr. Ramos for further follow up. She can also follow up with her PMD (who is in [facility]) in the next few days. Patient is aware of the plan and agrees. She reports feeling much better and would like to go home. - Date & Time of H&P Date of H&P: 04/06/17 Time of H&P: 02:00 Discharge Exam - Head Exam Head Exam: ATRAUMATIC, NORMAL INSPECTION, NORMOCEPHALIC - Eye Exam Eye Exam: EOMI, Normal appearance, PERRL Pupil Exam: NORMAL ACCOMODATION, PERRL - ENT Exam ENT Exam: Mucous Membranes Moist - Respiratory Exam Respiratory Exam: Clear to PA & Lateral, NORMAL BREATHING PATTERN, UNREMARKABLE. absent: Rales, Rhonchi, Wheezes - Cardiovascular Exam Cardiovascular Exam: REGULAR RHYTHM, +S1, +S2. absent: Gallop, Rubs, Systolic Murmur - GI/Abdominal Exam GI & Abdominal Exam: Normal Bowel Sounds, Soft, Unremarkable. absent: Mass, Rebound, Rigid, Tenderness - Extremities Exam Extremities exam: normal inspection - Neurological Exam Neurological exam: Alert, CN II-XII Intact, Normal Gait, Oriented x3 - Psychiatric Exam Psychiatric exam: Normal Affect, Normal Mood - Skin Skin Exam: Dry, Intact, Normal Color, Warm Discharge Plan - Discharge Medications Prescriptions: amLODIPine [Norvasc] 10 mg PO DAILY #30 tab Aspirin [Aspirin Chewable] 81 mg PO DAILY #30 ctb Atorvastatin [Lipitor] 10 mg PO DIN #30 tab hydroCHLOROthiazide [Hydrodiuril] 25 mg PO DAILY #30 tab - Follow Up Plan Condition: STABLE Disposition: HOME/ ROUTINE Instructions: Transient Ischemic Attack (DC), Hypertension (GEN) Additional Instructions: 1. Take Norvasc and Hydrochlorothiazide daily. 2. Take Lipitor 10mg and Aspirin 81mg daily for history of TIA. 3. Follow up with neurologist Dr. Ramos 4. Follow up with PMD in 1 week. 5. MRI negative. Discussed results with patient. Referrals: Luis Felipe Ramos MD [Staff Provider] - <Mayank Cruz - Last Filed: 04/07/17 15:00> Provider - Provider Date of Admission: 04/06/17 17:26 Attending physician: Mayank Cruz MD Hospital Course - Lab Results Lab Results: Most Recent Lab Values WBC 7.6 10^3/ul (4.5-11.0) 04/07/17 07:00 RBC 4.20 10^6/uL (3.5-6.1) 04/07/17 07:00 Hgb 13.2 gm/dL (12.0-16.0) 04/07/17 07:00 Hct 38.7 % (36.0-48.0) 04/07/17 07:00 MCV 92.1 fL (80.0-105.0) 04/07/17 07:00 MCH 31.4 pg (25.0-35.0) 04/07/17 07:00 MCHC 34.1 g/dl (31.0-37.0) 04/07/17 07:00 RDW 13.4 % (11.5-14.5) 04/07/17 07:00 Plt Count 283 10^3/uL (120.0-450.0) 04/07/17 07:00 MPV 8.8 fl (7.0-11.0) 04/07/17 07:00 Gran % 63.3 % (50.0-68.0) 04/07/17 07:00 Lymph % (Auto) 27.9 % (22.0-35.0) 04/07/17 07:00 [place] % (Auto) 7.8 % (1.0-6.0) H 04/07/17 07:00 Eos % (Auto) 0.9 % (1.5-5.0) L 04/07/17 07:00 Baso % (Auto) 0.1 % (0.0-3.0) 04/07/17 07:00 Gran # 4.82 (1.4-6.5) 04/07/17 07:00 Lymph # 2.1 (1.2-3.4) 04/07/17 07:00 [place] # 0.6 (0.1-0.6) 04/07/17 07:00 Eos # 0.1 (0.0-0.7) 04/07/17 07:00 Baso # 0.01 K/mm3 (0.0-2.0) 04/07/17 07:00 ESR 25 mm/hr (0.0-20.0) H 04/06/17 07:12 PT 10.7 Seconds (9.9-11.8) 04/06/17 07:12 INR 0.99 (0.93-1.08) 04/06/17 07:12 APTT 28.6 Seconds (23.7-30.8) 04/06/17 07:12 Sodium 138 mmol/L (132-148) 04/07/17 07:00 Potassium 4.4 mmol/L (3.6-5.0) 04/07/17 07:00 Chloride 105 mmol/L (98-107) 04/07/17 07:00 Carbon Dioxide 21 mmol/L (21-33) 04/07/17 07:00 Anion Gap 16 (10-20) 04/07/17 07:00 BUN 14 mg/dL (7-21) 04/07/17 07:00 Creatinine 0.9 mg/dL (0.5-1.4) 04/07/17 07:00 Est GFR ( Amer) > 60 04/07/17 07:00 Est GFR (Non-Af Amer) > 60 04/07/17 07:00 Random Glucose 87 mg/dL (70-110) 04/07/17 07:00 Calcium 9.6 mg/dL (8.4-10.5) 04/07/17 07:00 Phosphorus 4.1 mg/dL (2.5-4.5) 04/07/17 07:00 Magnesium 1.9 mg/dL (1.7-2.2) 04/07/17 07:00 Total Bilirubin 0.6 mg/dL (0.2-1.3) 04/06/17 07:12 AST 19 U/L (15-39) 04/06/17 07:12 ALT 20 U/L (7-56) 04/06/17 07:12 Alkaline Phosphatase 64 U/L (38-133) 04/06/17 07:12 Total Protein 6.5 g/dL (5.8-8.3) 04/06/17 07:12 Albumin 3.5 g/dL (3.0-4.8) 04/06/17 07:12 Globulin 3.0 gm/dL 04/06/17 07:12 Albumin/Globulin Ratio 1.2 (1.1-1.8) 04/06/17 07:12 Triglycerides 71 mg/dL (35-160) 04/06/17 07:12 Cholesterol 168 mg/dL (130-200) 04/06/17 07:12 LDL Cholesterol Direct 107 mg/dL (0-129) 04/06/17 07:12 HDL Cholesterol 46 mg/dL (29-60) 04/06/17 07:12 Vitamin B12 485 pg/mL (239-931) 04/06/17 07:12 TSH 3rd Generation 3.68 mIU/mL (0.46-4.68) 04/06/17 07:12 Attending/Attestation - Attestation I have personally seen and examined this patient.: Yes I have fully participated in the care of the patient.: Yes I have reviewed all pertinent clinical information, including history, physical exam and plan: Yes Notes (Text): I have seen and examined the patient at bedside. Agree with the above note with the following additions/ exceptions: Briefly this is 46 year old female with history of TIA with no residual deficits who was admitted for suspected TIA and uncontrolled HTN. She was started on asa, lipitor, hctz and norvasc. Advised the patient to have bmp checked within 1 week. All the labs and imaging reviewed. Patient is able to walk in the hallway without any problems. Follow up with PMD in [place] within 3-[address] Mayank Cruz
--- NOTE | 2017-04-07 11:12 | MRI ---
PROCEDURE: MRI BRAIN WITHOUT CONTRAST HISTORY: TIA workup COMPARISON: CT head 04/05/2017 TECHNIQUE: Multiplanar, multisequence MR images of the brain were obtained without intravenous contrast enhancement. FINDINGS: HEMORRHAGE: None DWI: No evidence of an acute or early subacute infarction. BRAIN PARENCHYMA: No mass effect or edema. No atrophy or chronic microvascular ischemic changes. VENTRICLES: Unremarkable. No hydrocephalus. CRANIUM: Unremarkable. ORBITS: Grossly unremarkable. PARANASAL SINUSES/MASTOIDS: Clear VASCULAR SYSTEM: Skull base flow voids intact. OTHER FINDINGS: "Empty sella" indicating pituitary flattened along floor of sella turcica. This may correspond clinically to headaches. IMPRESSION: No evidence of acute infarct. No intracranial mass or hemorrhage. Incidental "Empty sella ".
[2017-04-07 12:47] VITALS: BP 137/88; PULSE 70; TEMP 98.5
--- NOTE | 2017-04-08 08:31 | MRI ---
PROCEDURE: Magnetic Resonance Angiography Brain HISTORY: PMHx TIA, presents with L eye vision changes COMPARISON: None available. TECHNIQUE: 3D time of flight MR angiography of the intracranial arteries was performed. Rotating maximum intensity projection images were generated. FINDINGS: INTERNAL CEREBRAL ARTERIES: Unremarkable. The skull base, petrous, cavernous and supraclinoid segments are bilaterally widely patient. ANTERIOR CEREBRAL ARTERIES: Unremarkable. A1 and A2 segments are widely patent. Smaller distal branches unremarkable, as visualized. MIDDLE CEREBRAL ARTERIES: Unremarkable. M1 and M2 segments are widely patent. Perisylvian branches grossly symmetric. POSTERIOR CIRCULATION: Basilar Artery: Unremarkable. Distal Vertebral Arteries: Unremarkable. Posterior Cerebral Arteries: Unremarkable. Posterior Inferior Cerebellar Arteries: Unremarkable. ANEURYSM/ VASCULAR MALFORMATIONS: None. OTHER FINDINGS: None. IMPRESSION: Unremarkable MR angiography of the brain. Concur with [facility] report via Dr. Facundo Moore.
--- NOTE | 2017-04-08 08:34 | MRI ---
PROCEDURE: MR Angiography of the neck without contrast HISTORY: PMHx TIA, presents with L eye vision changes COMPARISON: None available. TECHNIQUE: 3D [id number] angiography of the neck was performed. Rotating maximum intensity projection images of the cervical carotid and vertebral arteries were generated. The origins of the common carotid arteries were not visualized, which is a limitation inherent to the non-contrast time of flight technique. FINDINGS: RIGHT CAROTID ARTERIES: Common Carotid Artery: Normal. Carotid Bifurcation: Normal. Internal Carotid Artery:Normal. External Carotid Artery (proximal branches): Normal. LEFT CAROTID ARTERIES: Common Carotid Artery: Normal. Carotid Bifurcation: Normal. Internal Carotid Artery:Normal. External Carotid Artery (proximal branches): Normal. VERTEBRAL ARTERIES: Right Vertebral Artery: Grossly artifacted proximal segment. Remainder of the cervical segment appears unremarkable as imaged. Left Vertebral Artery: Grossly artifacted proximal segment. Remainder of the cervical segment appears unremarkable as imaged. OTHER FINDINGS: None. IMPRESSION: Unremarkable appearing bilateral carotid artery systems bilaterally. The proximal vertebral artery segments are artifact in bilaterally with remainder unremarkable as discussed above.
[2017-04-08] MEDS ORDERED: Pneumococcal 23-Valent Vaccine IM ONE (10:00)
== END 2017-04-07 14:46 | disposition home or self-care (01) | DRG 305 ==
LOC: ED 18:25 → ERH 22:56 → 2RNO 04-06 00:27 → OBSVTOIN 04-06 17:26
PROVIDERS: ADMIT Hospitalist; ATTEND Hospitalist
DX: I16.0 Hypertensive urgency (principal); H53.8 Other visual disturbances; I10 Essential (primary) hypertension; Z86.73 Personal history of transient ischemic attack (TIA), and cerebral infarction without residual deficits; Z88.0 Allergy status to penicillin

== ENCOUNTER 2018-03-17 19:42 | Emergency (ER) | payer BC ==
[2018-03-17 20:05] VITALS: RESP 18; O2SAT 98; BMI 36.4
--- NOTE | 2018-03-17 21:11 | ED PDOC ---
Arrival/HPI - General Chief Complaint: High Blood Pressure Time Seen by Provider: 03/17/18 20:33 Historian: Patient - History of Present Illness Narrative History of Present Illness (Text): 03/17/18 20:33 47 year old female, with past medical history of hypertension, HCTZ, hyperlipidemia and TIA 2010, presents to the Emergency department complaining of dizziness and left leg discomfort since yesterday. Patient informs noncompliance with her blood pressure medication. Patient denies any fever, chills, nausea, vomiting, diarrhea, abdominal pain, chest pain, shortness of breath, cough, or any other complaints. Patient presents to the Emergency department for medical evaluation. Time/Duration: Other (yesterday) Symptom Onset: Gradual Symptom Course: Unchanged Activities at Onset: Light Context: Home Past Medical History - Provider Review Nursing Documentation Reviewed: Yes - Infectious Disease Hx of Infectious Diseases: None - Tetanus Immunization Tetanus Immunization: Up to Date, Unknown - Cardiac Hx Cardiac Disorders: Yes Hx Hypertension: Yes - Pulmonary Hx Respiratory Disorders: No - Neurological Hx Neurological Disorder: Yes Hx Transient Ischemic Attacks (TIA): Yes (x3) - HEENT Hx HEENT Disorder: No - Renal Hx Renal Disorder: No - Endocrine/Metabolic Hx Hyperthyroidism: No Hx Hypothyroidism: No - Hematological/Oncological Hx Blood Disorders: No - Integumentary Hx Dermatological Disorder: No - Musculoskeletal/Rheumatological Hx Musculoskeletal Disorders: No - Gastrointestinal Hx Gastrointestinal Disorders: No - Genitourinary/Gynecological Hx Genitourinary Disorders: Yes Hx Incontinence: Yes (Stress incontinence) Hx Sexually Transmitted Diseases: No Hx Urinary Tract Infection: Yes (Frequent UTI) - Psychiatric Hx Psychophysiologic Disorder: Yes Hx Anxiety: Yes Hx Substance Use: No - Past Surgical History Past Surgical History: No Previous - Surgical History Hx Section: Yes - Anesthesia Hx Anesthesia: Yes Hx Anesthesia Reactions: No Hx Malignant Hyperthermia: No - Suicidal Assessment Feels Threatened In Home Enviroment: No Family/Social History Family/Social History: No Known Family HX Smoking Status: Never Smoked Hx Alcohol Use: No Hx Substance Use: No Hx Substance Use Treatment: No Allergies/Home Meds Allergies/Adverse Reactions: Allergies Penicillins Allergy (Verified 03/17/18 19:58) RASH Review of Systems - Physician Review All systems were reviewed & negative as marked: Yes - Review of Systems Constitutional: Normal. absent: Fevers Eyes: Normal ENT: Normal Respiratory: Normal. absent: SOB, Cough Cardiovascular: Normal. absent: Chest Pain Gastrointestinal: Normal. absent: Abdominal Pain, Diarrhea, Nausea, Vomiting Genitourinary Female: Normal Musculoskeletal: Other (left leg discomfort) Skin: Normal Neurological: Dizziness Endocrine: Normal Hemo/Lymphatic: Normal Psychiatric: Normal Physical Exam Vital Signs Reviewed: Yes Vital Signs Temp Pulse Pulse Resp BP BP Pulse Ox 03/17/18 22:38 98 F 84 18 128/76 98 03/17/18 20:34 83 140/98 H 03/17/18 19:57 98.0 F 93 H 18 140/98 H 98 Temperature: Afebrile Blood Pressure: Hypertensive Pulse: Regular Respiratory Rate: Normal Appearance: Positive for: Well-Appearing, Non-Toxic, Comfortable Pain Distress: None Mental Status: Positive for: Alert and Oriented X 3 - Systems Exam Head: Present: Atraumatic, Normocephalic Pupils: Present: PERRL Extroacular Muscles: Present: EOMI Conjunctiva: Present: Normal Mouth: Present: Moist Mucous Membranes Neck: Present: Normal Range of Motion Respiratory/Chest: Present: Clear to Auscultation, Good Air Exchange. No: Respiratory Distress, Accessory Muscle Use Cardiovascular: Present: Regular Rate and Rhythm, Normal S1, S2. No: Murmurs Abdomen: No: Tenderness, Distention, Peritoneal Signs Back: Present: Normal Inspection Upper Extremity: Present: Normal Inspection. No: Cyanosis, Edema Lower Extremity: Present: NORMAL PULSES, Normal ROM, Tenderness (Tenderness to anterior aspect of left leg ). No: Edema Neurological: Present: GCS=15, CN II-XII Intact, Speech Normal Skin: Present: Warm, Dry, Normal Color. No: Rashes Psychiatric: Present: Alert, Oriented x 3, Normal Insight, Normal Concentration Medical Decision Making ED Course and Treatment: 03/17/18 20:33 Impression: 47 year old female presents to the Emergency department for dizziness and left leg discomfort. Differential Diagnosis included but are not limited to: DVT Plan: -- EKG -- Labs -- Chest X-ray -- Urinalysis -- Lower Extremity US -- Reassess and disposition Prior Visits: Notes and results from previous visits were reviewed. Progress Notes: 03/17/18 20:33 EKG: Ordered, reviewed, and independently interpreted the EKG. Rate : 82 BPM Rhythm : NSR Interpretation : No ST-segment elevations or depressions, no T-wave inversions, normal intervals. - Lab Interpretations Lab Results: 03/17/18 21:04 03/17/18 21:04 Lab Results 03/17/18 21:04: Sodium 137, Potassium 3.7, Chloride 102, Carbon Dioxide 23, Anion Gap 16, BUN 15, Creatinine 0.9, Est GFR ( Amer) > 60, Est GFR (Non- Af Amer) > 60, Random Glucose 97, Calcium 9.4, Magnesium 1.9, Total Bilirubin 0.8, AST 24, ALT 21, Alkaline Phosphatase 90, Lactate Dehydrogenase 494, Total Creatine Kinase 80, Troponin I < 0.01, Total Protein 7.6, Albumin 4.2, Globulin 3.4, Albumin/Globulin Ratio 1.2 03/17/18 21:04: WBC 10.2 D, RBC 4.50, Hgb 14.2, Hct 41.1, MCV 91.3, MCH 31.6, MCHC 34.5, RDW 12.9, Plt Count 294, MPV 9.0, Gran % 66.3, Lymph % (Auto) 26.4, Leon % (Auto) 6.7 H, Eos % (Auto) 0.5 L, Baso % (Auto) 0.1, Gran # 6.76 H, Lymph # (Auto) 2.7, Leon # (Auto) 0.7 H, Eos # (Auto) 0.1, Baso # (Auto) 0.01 - RAD Interpretation Radiology Orders: 03/17/18 20:33 DUPLEX LOWER EXTRM VEIN LEFT [US] Stat - EKG Interpretation Interpreted by ED Physician: Yes Type: 12 lead EKG - Medication Orders Current Medication Orders: Discontinued Medications Ketorolac Tromethamine (Toradol) 30 mg IVP STAT STA Stop: 03/17/18 22:08 - Scribe Statement The provider has reviewed the documentation as recorded by the Maria Inesibchavez Wang. All medical record entries made by the Scribchavez were at my direction and personally dictated by me. I have reviewed the chart and agree that the record accurately reflects my personal performance of the history, physical exam, medical decision making, and the department course for this patient. I have also personally directed, reviewed, and agree with the discharge instructions and disposition. Disposition/Present on Arrival - Present on Arrival Any Indicators Present on Arrival: No History of DVT/PE: No History of Uncontrolled Diabetes: No Urinary Catheter: No History of Decub. Ulcer: No History Surgical Site Infection Following: None - Disposition Have Diagnosis and Disposition been Completed?: Yes Diagnosis: Leg pain, anterior, Dizziness Disposition: HOME/ ROUTINE Disposition Time: 22:38 Patient Plan: Discharge Condition: GOOD Discharge Instructions (ExitCare): Muscle and Bone Pain (DC), Dizziness, Nonvertigo, (DC) Prescriptions: Ibuprofen [Motrin] 600 mg PO Q6 5 Days #20 tab Ibuprofen [Motrin Ib] 600 mg PO Q6 5 Days #20 tablet Meclizine [Meclizine*] 25 mg PO Q6 #30 tab Meclizine [Meclizine*] 25 mg PO Q8 5 Days #15 tab Referrals: Irma Jack, [Non-Staff] - Follow up with primary Forms: [employer] (Malay)
[2018-03-17 21:15] LABS: BASO # 0.01 K/mm3 (0.0-2.0); BASO % 0.1 % (0.0-3.0); EOS # 0.1 (0.0-0.7); EOS % 0.5 % (1.5-5.0); GRAN # 6.76 (1.4-6.5); GRAN % 66.3 % (50.0-68.0); HEMOGLOBIN 14.2 g/dL (12.0-16.0); LYMPH # 2.7 (1.2-3.4); LYMPH % 26.4 % (22.0-35.0); MEAN CELL VOLUME 91.3 fl (80.0-105.0); MEAN CORPUSCULAR HEMOGLOBIN 31.6 pg (25.0-35.0); MEAN CORPUSCULAR HGB CONC 34.5 g/dl (31.0-37.0); MONO # 0.7 (0.1-0.6); MONO % 6.7 % (1.0-6.0); RBC 4.5 10^6/uL (3.5-6.1); RED CELL DISTRIBUTION WIDTH 12.9 % (11.5-14.5); WHITE BLOOD COUNT 10.2 10^3/ul (4.5-11.0)
[2018-03-17 21:25] LABS: ALB/GLOB RATIO 1.2 (1.1-1.8); ALBUMIN 4.2 g/dL (3.0-4.8); ALT/SGPT 21 U/L (7-56); AST/SGOT 24 U/L (14-36); BLOOD UREA NITROGEN 15 mg/dL (7-21); CALCIUM 9.4 mg/dL (8.4-10.5); GFR AFRICAN-AMERICAN > 60; GFR NON-AFRICAN AMERICAN > 60
[2018-03-17 21:37] LABS: TROPONIN I < 0.01 ng/mL
[2018-03-17 22:40] VITALS: BP 128/76; PULSE 84; TEMP 98
--- NOTE | 2018-03-18 09:37 | US ---
PROCEDURE: Left lower extremity venous US HISTORY: Leg pain and swelling. Evaluate for DVT. PHYSICIAN(S): Dung Howard MD. TECHNIQUE: Duplex sonography and color-flow Doppler with graded compression were used to evaluate the deep venous system of the left lower extremity. FINDINGS: The visualized deep venous system of the left lower extremity is sonographically normal and compressible. Normal wave forms and augmentation are seen. There is no sonographic evidence for deep venous thrombosis in the visualized segments of the left lower extremity. IMPRESSION: 1. No sonographic evidence for deep venous thrombosis in the visualized segments of the left lower extremity.
--- NOTE | 2018-03-18 09:59 | CARD ---
APPROVED REPORT EKG Measurement Heart [id number] CT [id number] [id number] <Conclusion> Normal sinus rhythm Low voltage lateral leads NSSTW changes Q in lll No change
== END 2018-03-17 22:38 | disposition home or self-care (01) ==
LOC: ED 19:42
DX: M79.605 Pain in left leg (principal); R42 Dizziness and giddiness; I10 Essential (primary) hypertension; E78.5 Hyperlipidemia, unspecified; Z86.73 Personal history of transient ischemic attack (TIA), and cerebral infarction without residual deficits

== ENCOUNTER 2018-05-15 22:00 | Emergency (ER) | payer BC ==
[2018-05-15 22:00] VITALS: BMI 33.4
[2018-05-15 22:37] VITALS: TEMP 98
--- NOTE | 2018-05-15 22:58 | ED PDOC ---
Arrival/HPI - General Chief Complaint: Lower Extremity Problem/Injury Time Seen by Provider: 05/15/18 22:21 Historian: Patient - History of Present Illness Narrative History of Present Illness (Text): 05/15/18 22:52 47 year old female, with past medical history of multiple TIAs, hypertension and hyperlipidemia, presents to the Emergency department complaining of bilateral leg swelling since 1 week. Patient informs intermittent swelling from bilateral knees down to her feet with no improvement to symptoms since onset. Patient denies any rash, fall, open wound or similar symptoms in the past. Patient is able to ambulate and move her toes without any difficulty. Patient denies any fevers, chills, headache, dizziness, chest pain, shortness of breath , dyspnea on exertion, cough, abdominal pain, nausea, vomiting, diarrhea, back pain, neck pain, or any other complaints. Patient informs occasional drinking alcohol but denies smoking tobacco. Patient states recent travel to [place] 2 weeks ago. 05/16/18 01:26 Time/Duration: 1 week Symptom Onset: Gradual Symptom Course: Unchanged Activities at Onset: Light Context: Home Past Medical History - Provider Review Nursing Documentation Reviewed: Yes - Travel History Have you recently traveled outside [place] w/in the past 3 mons?: Yes - Infectious Disease Hx of Infectious Diseases: None - Tetanus Immunization Tetanus Immunization: Up to Date, Unknown - Cardiac Hx Cardiac Disorders: Yes Hx Hypertension: Yes - Pulmonary Hx Respiratory Disorders: No - Neurological Hx Transient Ischemic Attacks (TIA): Yes - HEENT Hx HEENT Disorder: No - Renal Hx Renal Disorder: No - Endocrine/Metabolic Hx Hyperthyroidism: No Hx Hypothyroidism: No - Hematological/Oncological Hx Blood Disorders: No - Integumentary Hx Dermatological Disorder: No - Musculoskeletal/Rheumatological Hx Musculoskeletal Disorders: No - Gastrointestinal Hx Gastrointestinal Disorders: No - Genitourinary/Gynecological Hx Genitourinary Disorders: Yes Hx Incontinence: Yes (Stress incontinence) Hx Sexually Transmitted Diseases: No Hx Urinary Tract Infection: Yes (Frequent UTI) - Psychiatric Hx Psychophysiologic Disorder: Yes Hx Anxiety: Yes Hx Substance Use: No - Past Surgical History Past Surgical History: No Previous - Surgical History Hx Section: Yes - Anesthesia Hx Anesthesia: Yes Hx Anesthesia Reactions: No Hx Malignant Hyperthermia: No - Suicidal Assessment Feels Threatened In Home Enviroment: No Family/Social History - Physician Review Nursing Documentation Reviewed: Yes Family/Social History: No Known Family HX Smoking Status: Never Smoked Hx Alcohol Use: No Hx Substance Use: No Hx Substance Use Treatment: No Allergies/Home Meds Allergies/Adverse Reactions: Allergies Penicillins Allergy (Verified 05/15/18 22:34) RASH Review of Systems - Physician Review All systems were reviewed & negative as marked: Yes - Review of Systems Constitutional: absent: Fevers Respiratory: absent: SOB, Cough Cardiovascular: Edema. absent: Chest Pain, Palpitations, DOYLE, Orthopnea, Syncope Gastrointestinal: absent: Abdominal Pain, Diarrhea, Nausea, Vomiting Musculoskeletal: absent: Back Pain, Neck Pain Neurological: absent: Headache, Dizziness Physical Exam Vital Signs Reviewed: Yes Vital Signs Temp Pulse Resp BP Pulse Ox 05/15/18 22:36 98.0 F 93 H 17 125/75 99 Temperature: Afebrile Blood Pressure: Normal Pulse: Regular Respiratory Rate: Normal Appearance: Positive for: Well-Appearing, Non-Toxic, Comfortable Pain Distress: None Mental Status: Positive for: Alert and Oriented X 3 - Systems Exam Head: Present: Atraumatic, Normocephalic Pupils: Present: PERRL Extroacular Muscles: Present: EOMI Conjunctiva: Present: Normal Neck: Present: Normal Range of Motion Respiratory/Chest: Present: Clear to Auscultation, Good Air Exchange. No: Respiratory Distress, Accessory Muscle Use Cardiovascular: Present: Regular Rate and Rhythm, Normal S1, S2. No: Murmurs Abdomen: No: Tenderness, Distention, Peritoneal Signs Back: Present: Normal Inspection Upper Extremity: Present: Normal Inspection. No: Cyanosis, Edema Lower Extremity: Present: Edema (non pitting b/l below knee, compartments non hard), NORMAL PULSES, Normal ROM, Swelling (bilateral lower extremity swellling non pitting), Neurovascularly Intact, Other (No rashes). No: Tenderness Neurological: Present: GCS=15, CN II-XII Intact, Speech Normal, Motor Func Grossly Intact, Normal Sensory Function Skin: Present: Warm, Dry, Normal Color. No: Rashes Psychiatric: Present: Alert, Oriented x 3, Normal Insight, Normal Concentration Medical Decision Making ED Course and Treatment: 05/15/18 23:02 Impression: 47 year old female presents to the Emergency department complaining of bilateral leg swelling. No pulselessness, No mottoling, good n/v status, non numbness unlikely arterial occlusion. Given no erythema unlikely cellulitis. Given no CP or SOB, orthopnea or PND as well as non-pitting edema on exam, likely non-cardiogenic edema. Will seek imaging and labs. Differential Diagnosis included but are not limited to: DVT Plan: -- Labs -- Tylenol -- US of Lower Extremity -- Reassess and disposition Prior Visits: Notes and results from previous visits were reviewed. Progress Notes: 05/16/18 01:28 labs unremarkable. Pending US. 05/16/18 01:31 US b/l LE report reviewed- no DVT. given no elevated BNP, no recent CP or SOB, no orthopnea or pnd likely non cardiogenic. Will have pt follow up outpt. 05/16/18 01:33 - Lab Interpretations Lab Results: 05/15/18 23:21 05/15/18 23:21 Lab Results 05/15/18 23:21: Sodium 138, Potassium 4.2, Chloride 103, Carbon Dioxide 23, Anion Gap 16, BUN 15, Creatinine 0.8, Est GFR ( Amer) > 60, Est GFR (Non- Af Amer) > 60, Random Glucose 99, Calcium 9.4, Total Bilirubin 0.7, AST 25, ALT 18, Alkaline Phosphatase 75, NT-Pro-B Natriuret Pep 31.2, Total Protein 7.7, Albumin 4.0, Globulin 3.6, Albumin/Globulin Ratio 1.1 05/15/18 23:21: WBC 11.4 H, RBC 4.02, Hgb 12.5, Hct 36.7, MCV 91.3, MCH 31.1, MCHC 34.1, RDW 13.4, Plt Count 296, MPV 8.8, Gran % 67.8, Lymph % (Auto) 23.9, [place] % (Auto) 7.5 H, Eos % (Auto) 0.7 L, Baso % (Auto) 0.1, Gran # 7.72 H, Lymph # (Auto) 2.7, [place] # (Auto) 0.9 H, Eos # (Auto) 0.1, Baso # (Auto) 0.01 - RAD Interpretation Radiology Orders: 05/15/18 22:53 DUPLEX LOWER EXTRM VEIN BILAT [US] Stat - Medication Orders Current Medication Orders: Discontinued Medications Acetaminophen (Tylenol 325mg Tab) 650 mg PO STAT STA Stop: 05/15/18 22:55 Last Admin: 05/15/18 23:28 Dose: 650 mg - Scribe Statement The provider has reviewed the documentation as recorded by the Maria Inesibe Joan Wang. All medical record entries made by the Scribe were at my direction and personally dictated by me. I have reviewed the chart and agree that the record accurately reflects my personal performance of the history, physical exam, medical decision making, and the department course for this patient. I have also personally directed, reviewed, and agree with the discharge instructions and disposition. Disposition/Present on Arrival - Present on Arrival Any Indicators Present on Arrival: No History of DVT/PE: No History of Uncontrolled Diabetes: No Urinary Catheter: No History of Decub. Ulcer: No History Surgical Site Infection Following: None - Disposition Have Diagnosis and Disposition been Completed?: Yes Diagnosis: Leg swelling Disposition: HOME/ ROUTINE Disposition Time: 01:32 Condition: GOOD Discharge Instructions (ExitCare): Lymphedema, Dependent Edema (DC) Additional Instructions: ARABELLA POWELL, thank you for letting us take care of you today. Your provider was Kannan Patricio and you were treated for LEG AND FEET PROBLEM. The emergency medical care you received today was directed at your acute symptoms. If you were prescribed any medication, please fill it and take as directed. It may take several days for your symptoms to resolve. Return to the Emergency Department if your symptoms worsen, do not improve, or if you have any other problems. Please contact your doctor or call one of the physicians/clinics you have been referred to that are listed on the Patient Visit Information form that is included in your discharge packet. Bring any paperwork you were given at discharge with you along with any medications you are taking to your follow up visit. Our treatment cannot replace ongoing medical care by a primary care provider outside of the emergency department. Thank you for allowing the [facility] team to be part of your care today. If you had an X-Ray or CT scan: A Radiologist will review the ED reading if any change in treatment is needed we will contact you. If you had a blood, urine, or wound culture: It will take several days for the results, if any change in treatment is needed we will contact you. If you had an STI test: It will take 48 hours for the results. Please call after 1 week if you have not heard back. Referrals: Martha Gunn MD [Primary Care Provider] - Follow up with primary Dung Powell MD [Staff Provider] - Follow up with primary Forms: [employer] (Kazakh)
[2018-05-15 23:33] LABS: BASO # 0.01 K/mm3 (0.0-2.0); BASO % 0.1 % (0.0-3.0); EOS # 0.1 (0.0-0.7); EOS % 0.7 % (1.5-5.0); GRAN # 7.72 (1.4-6.5); GRAN % 67.8 % (50.0-68.0); HEMOGLOBIN 12.5 g/dL (12.0-16.0); LYMPH # 2.7 (1.2-3.4); LYMPH % 23.9 % (22.0-35.0); MEAN CELL VOLUME 91.3 fl (80.0-105.0); MEAN CORPUSCULAR HEMOGLOBIN 31.1 pg (25.0-35.0); MEAN CORPUSCULAR HGB CONC 34.1 g/dl (31.0-37.0); MEAN PLATELET VOLUME 8.8 fl (7.0-11.0); MONO # 0.9 (0.1-0.6); MONO % 7.5 % (1.0-6.0); RBC 4.02 10^6/uL (3.5-6.1); RED CELL DISTRIBUTION WIDTH 13.4 % (11.5-14.5); WHITE BLOOD COUNT 11.4 10^3/ul (4.5-11.0)
[2018-05-15 23:56] LABS: ALB/GLOB RATIO 1.1 (1.1-1.8); CALCIUM 9.4 mg/dL (8.4-10.5); GFR NON-AFRICAN AMERICAN > 60
[2018-05-16 00:04] LABS: B-TYPE NATRIURETIC PEPTIDE 31.2 pg/mL (0-450)
[2018-05-16 00:18] LABS: ALT/SGPT 18 U/L (7-56); AST/SGOT 25 U/L (14-36); BLOOD UREA NITROGEN 15 mg/dL (7-21)
[2018-05-16 01:48] VITALS: BP 124/78; PULSE 90; RESP 16; O2SAT 100
--- NOTE | 2018-05-19 22:25 | US ---
HISTORY: Leg pain and swelling. Evaluate for DVT PHYSICIAN(S): Dung Howard MD. TECHNIQUE: Duplex sonography and color-flow Doppler with graded compression were used to evaluate the deep venous systems of both lower extremities. FINDINGS: The visualized deep venous systems of both lower extremities are sonographically normal and compressible. Normal wave forms and augmentation are seen. There is no sonographic evidence for deep venous thrombosis in the visualized segments of both lower extremities. IMPRESSION: No sonographic evidence for deep venous thrombosis in the visualized segments of both lower extremities.
== END 2018-05-16 01:47 | disposition home or self-care (01) ==
LOC: ED 22:00
DX: M79.89 Other specified soft tissue disorders (principal); E78.5 Hyperlipidemia, unspecified; I10 Essential (primary) hypertension; Z86.73 Personal history of transient ischemic attack (TIA), and cerebral infarction without residual deficits